=== PATIENT | female | born 1995 | race Caucasian/White ===

== ENCOUNTER → 2020-06-14 | Outpatient (CLI) | payer OTHER ==
--- NOTE | 2020-06-14 09:48 | XR ---
Right elbow HISTORY: Strain, pain 3 views the right elbow Bone mineralization, joint spaces and alignment are maintained. No joint effusion. IMPRESSION: No fracture or dislocation.
== END | disposition home or self-care (01) ==
LOC: RADXRMAIN 09:24
PROVIDERS: ATTEND Emergency Medicine
DX: S53.441A Ulnar collateral ligament sprain of right elbow, initial encounter (principal); S50.01XA Contusion of right elbow, initial encounter